=== PATIENT | male | born 1980 | race Caucasian/White ===

== ENCOUNTER 2023-06-10 13:21 | Outpatient (CLI) | payer BC ==
[~2023-06-10 13:21] MED LIST: Magnevist 469MG/ML 20 ML VIAL ONE
== END 2023-06-10 13:22 | disposition home or self-care (01) ==
LOC: CSHMRI 13:21
PROVIDERS: ATTEND Internal Medicine
DX: G35 Multiple sclerosis (principal); R90.82 White matter disease, unspecified; M47.814 Spondylosis without myelopathy or radiculopathy, thoracic region; R19.02 Left upper quadrant abdominal swelling, mass and lump
CPT/HCPCS: 70553; 72156; 72157; A9579